=== PATIENT | female | born 1945 | race African-American/Black ===

== ENCOUNTER 2022-09-08 09:16 | Inpatient (IN) | payer OTHER, MEDICAID ==
[2022-09-08 11:18] LABS: Hemoglobin 8.7 g/dL (12.0-16.0); Mean Corpuscular Hemoglobin 31.2 pg (27.0-31.0); Red Blood Cell (RBC) Count 2.79 mill/uL (4.20-5.40)
[2022-09-08 11:38] LABS: ALT (SGPT) 17 U/L (8-55); AST (SGOT) 35 U/L (5-34); Albumin 1.6 g/dL (3.4-4.8); Alkaline Phosphatase 92 U/L (40-110); Anion Gap 18 mmol/L (10-20); BUN (Urea Nitrogen) 23 mg/dL (9.8-20.1); Bilirubin, Total 0.2 mg/dL (0.2-1.2); Calc. Creatinine Clearance 0 mL/min (70-130); Carbon Dioxide 23 mmol/L (23-31); Chloride 116 mmol/L (98-107); Estimated GFR 43; Globulin 5.4 g/dL (2.4-3.5); Glucose 88 mg/dL (83-110); Potassium 3.1 mmol/L (3.5-5.1)
[2022-09-08 11:42] LABS: Sodium 154 mmol/L (136-145)
[2022-09-08] MEDS ORDERED: GASTROGRAFIN 30 ML BOT ONE (11:50)
[2022-09-08 11:57] LABS: Anisocytosis SLIGHT = 6-15 cells (100X) (0-5/hpf); Hypochromia SLIGHT = 6-15 cells (100X) (0-5/hpf); Lymphocytes 9 % (21-51); MDiff Complete? YES; Mean Platelet Volume 8.2 fL (7.4-10.4); Monocytes 3 % (0-10); Neutrophil 88 % (42-75); Ovalocytes SLIGHT = 2-5 cells (100X) (0-1/hpf); Platelet Count 251 10x3/uL (130-400); Platelet Morphology Comment Appears Adequate; Polychromasia SLIGHT = 2-3 cells (100X) (0-2/hpf); RBC Distribution Width 20.5 % (11.5-14.5); Vacuoles SLIGHT; White Blood Cell (WBC) Count 21.3 10x3/uL (4.8-10.8)
[2022-09-08] MEDS ORDERED: Cefepime 2 GM VIAL ONE (12:40)
[2022-09-08] MEDS ORDERED: Ondansetron PF 4 MG/2 ML Vial IVP PRN (15:18)
[2022-09-08] MEDS ORDERED: Ipratropium/Albuterol 3 ML NEB NEB PRN (15:28)
[2022-09-08] MEDS ORDERED: Electrolyte Replacement Protocol 1 EACH FS SCH (15:30)
[2022-09-08 15:58] LABS: Magnesium 1.8 mg/dL (1.6-2.6)
[2022-09-08 17:42] LABS: SARS-CoV-2 NAA Rapid Test Not Detected (NotDetected)
[2022-09-08] MEDS ORDERED: Potassium Chloride 20 MEQ TAB PO SCH (18:45)
[2022-09-08 21:13] VITALS: BMI 31.1
[2022-09-08] MEDS ORDERED: Magnesium 2 GM/50 ML(in water) 2 GM in Premix Bag 1 BAG IVPB SCH (21:30)
[2022-09-08] MEDS: Dextrose 5% in Water 1,000 ML IV SCH (21:31)
[2022-09-08] MEDS: Cefepime 1 GM in Sodium Chloride 0.9% 100 ML IVPB SCH (21:32)
[2022-09-09 05:54] LABS: #Lymphocytes 0.8 thou/uL (1.20-3.40); #Neutrophils 16.3 thou/uL (1.40-6.50); %Eosinophils 0.2 % (0.0-10.0); %Lymphocytes 4.4 % (21.0-51.0); %Monocytes 5.6 % (0.0-10.0); %Neutrophils 89.8 % (42.0-75.0); Hemoglobin 8.1 g/dL (12.0-16.0); Mean Corpuscular HGB CONC 29.8 g/dL (32.0-36.0); Mean Corpuscular Hemoglobin 30.5 pg (27.0-31.0); Mean Platelet Volume 8.1 fL (7.4-10.4); Platelet Count 272 10x3/uL (130-400); RBC Distribution Width 20.9 % (11.5-14.5); Red Blood Cell (RBC) Count 2.67 mill/uL (4.20-5.40); White Blood Cell (WBC) Count 18.1 10x3/uL (4.8-10.8)
[2022-09-09 06:15] LABS: Anion Gap 16 mmol/L (10-20); BUN (Urea Nitrogen) 21 mg/dL (9.8-20.1); Calc. Creatinine Clearance 52 mL/min (70-130); Carbon Dioxide 22 mmol/L (23-31); Chloride 120 mmol/L (98-107); Estimated GFR 50; Glucose 87 mg/dL (83-110)
[2022-09-09 06:19] LABS: Potassium 2.6 mmol/L (3.5-5.1); Sodium 155 mmol/L (136-145)
[2022-09-09] MEDS ORDERED: Potassium Chloride 20 MEQ TAB PER TUBE SCH (08:00)
[2022-09-09 08:02] LABS: Bacteria/HPF 1+ HPF (None Seen); Bilirubin Negative (Negative); Blood, Urine 2+ (Negative); Clarity Clear (Clear); Glucose, Urine (Dipstick) Normal (Negative); Ketone, Urine Trace mg/dL (Negative); Leukocyte 500 Leu/uL (Negative); Nitrite Negative (Negative); Protein, Urine (Dipstick) 50 mg/dL (Neg-Trace); RBC/HPF 0-3 HPF (0-3); Specific Gravity, Urine 1.009 (1.002-1.036); Squamous Epithelial 0-3 HPF (0-3); Urobilinogen Normal mg/dL (Less than 2); WBC/HPF 21-50 HPF (0-3)
[2022-09-09] MEDS: Cefepime 1 GM in Sodium Chloride 0.9% 100 ML IVPB SCH ×4 (10:59→23:35)
[2022-09-09] MEDS: Dextrose 5% in Water 1,000 ML IV SCH ×3 (10:59→22:29)
[2022-09-09] MEDS: Potassium Chloride 20 MEQ in Premix Bag 1 BAG IVPB SCH ×3 (11:34→16:06)
[2022-09-09] MEDS ORDERED: Iopamidol-370 76% 500 ML 1 ML ONE (11:49)
[2022-09-10 06:02] LABS: #Eosinphils 0.1 thou/uL (0.0-0.7); #Lymphocytes 0.7 thou/uL (1.20-3.40); #Monocytes 0.8 thou/uL (0.11-0.59); #Neutrophils 13.6 thou/uL (1.40-6.50); %Eosinophils 0.3 % (0.0-10.0); %Lymphocytes 4.6 % (21.0-51.0); %Monocytes 5.2 % (0.0-10.0); %Neutrophils 89.9 % (42.0-75.0); Hemoglobin 7.3 g/dL (12.0-16.0); Mean Corpuscular Hemoglobin 30.7 pg (27.0-31.0); Mean Platelet Volume 7.9 fL (7.4-10.4); Platelet Count 271 10x3/uL (130-400); RBC Distribution Width 20.8 % (11.5-14.5); Red Blood Cell (RBC) Count 2.37 mill/uL (4.20-5.40); White Blood Cell (WBC) Count 15.1 10x3/uL (4.8-10.8)
[2022-09-10 06:21] LABS: Anion Gap 13 mmol/L (10-20); BUN (Urea Nitrogen) 19 mg/dL (9.8-20.1); Calc. Creatinine Clearance 52 mL/min (70-130); Calcium 7.9 mg/dL (7.8-10.44); Carbon Dioxide 24 mmol/L (23-31); Chloride 118 mmol/L (98-107); Estimated GFR 50; Glucose 213 mg/dL (83-110)
[2022-09-10 06:24] LABS: Potassium 2.6 mmol/L (3.5-5.1); Sodium 152 mmol/L (136-145)
[2022-09-10] MEDS: Dextrose 5% in Water 1,000 ML IV SCH (07:56)
[2022-09-10] MEDS: Potassium Bicarbonate/Cit Ac 20 MEQ TAB PO SCH ×2 (09:06→11:09)
[2022-09-10] MEDS: Cefepime 1 GM in Sodium Chloride 0.9% 100 ML IVPB SCH (11:10)
[2022-09-10] MEDS: Morphine 2 MG/ML VIAL SLOW IVP PRN (14:43)
[2022-09-10] MEDS: Potassium Chloride 20 MEQ in Premix Bag 1 BAG IVPB SCH ×3 (17:38→22:56)
[2022-09-11] MEDS: Cefepime 1 GM in Sodium Chloride 0.9% 100 ML IVPB SCH ×2 (00:50→11:05)
[2022-09-11] MEDS: Dextrose 5% in Water 1,000 ML IV SCH ×2 (00:50→09:56)
[2022-09-11] MEDS: Morphine 2 MG/ML VIAL SLOW IVP PRN ×2 (02:52→09:56)
[2022-09-11 07:14] LABS: #Eosinphils 0.1 thou/uL (0.0-0.7); #Lymphocytes 1.2 thou/uL (1.20-3.40); #Monocytes 1.2 thou/uL (0.11-0.59); #Neutrophils 10.7 thou/uL (1.40-6.50); %Eosinophils 0.6 % (0.0-10.0); %Lymphocytes 8.9 % (21.0-51.0); %Monocytes 8.8 % (0.0-10.0); %Neutrophils 81.7 % (42.0-75.0); Hemoglobin 7.3 g/dL (12.0-16.0); Mean Corpuscular HGB CONC 30.6 g/dL (32.0-36.0); Mean Corpuscular Hemoglobin 30.9 pg (27.0-31.0); Mean Platelet Volume 8.1 fL (7.4-10.4); Platelet Count 241 10x3/uL (130-400); RBC Distribution Width 20.5 % (11.5-14.5); Red Blood Cell (RBC) Count 2.36 mill/uL (4.20-5.40); White Blood Cell (WBC) Count 13.1 10x3/uL (4.8-10.8)
[2022-09-11 07:31] LABS: Anion Gap 10 mmol/L (10-20); BUN (Urea Nitrogen) 16 mg/dL (9.8-20.1); Calc. Creatinine Clearance 54 mL/min (70-130); Calcium 7.6 mg/dL (7.8-10.44); Carbon Dioxide 25 mmol/L (23-31); Chloride 115 mmol/L (98-107); Estimated GFR 52; Glucose 178 mg/dL (83-110); Potassium 3.2 mmol/L (3.5-5.1); Sodium 147 mmol/L (136-145)
[2022-09-11] MEDS: Potassium Chloride 20 MEQ in Premix Bag 1 BAG IVPB SCH ×2 (11:03→11:04)
[2022-09-11 12:43] VITALS: BP 111/68; TEMP 98.1
== END 2022-09-11 17:15 | disposition home or self-care (01) | DRG 394 ==
LOC: ERS 09:16 → ERHOLD 12:46 → SURG B 17:30
PROVIDERS: ADMIT Family Medicine; ATTEND Internal Medicine
PROC: 0D20XUZ Change Feeding Device in Upper Intestinal Tract, External Approach (ICD-10-PCS; principal; 2022-09-08)
DX: K94.23 Gastrostomy malfunction (principal); C34.90 Malignant neoplasm of unspecified part of unspecified bronchus or lung; E87.0 Hyperosmolality and hypernatremia; N17.9 Acute kidney failure, unspecified; Z66 Do not resuscitate; Z20.822 Contact with and (suspected) exposure to COVID-19; E78.5 Hyperlipidemia, unspecified; F03.90 Unspecified dementia, unspecified severity, without behavioral disturbance, psychotic disturbance, mood disturbance, and anxiety; J45.909 Unspecified asthma, uncomplicated; R62.7 Adult failure to thrive; D69.6 Thrombocytopenia, unspecified; F17.210 Nicotine dependence, cigarettes, uncomplicated; E87.6 Hypokalemia; E86.0 Dehydration; D72.829 Elevated white blood cell count, unspecified; R13.12 Dysphagia, oropharyngeal phase; Z88.0 Allergy status to penicillin; Z68.31 Body mass index [BMI] 31.0-31.9, adult; Z88.8 Allergy status to other drugs, medicaments and biological substances; Z79.51 Long term (current) use of inhaled steroids; Z79.899 Other long term (current) drug therapy
CPT/HCPCS: 36415; 43762; 71045; 74018; 74177; 80048; 80053; 81003; 81015; 83605; 83735; 85025; 87040; 93005; 96365; J0692; J1650; J2272; J2405; J3475; J3480; J3490; J7070; Q9963; Q9967; U0002